=== PATIENT | male | born 1955 | race Caucasian/White ===

== ENCOUNTER 2018-09-05 08:11 | Outpatient (CLI) | payer BC | END 2018-09-05 20:58 | disposition home or self-care (01) | LOC: SUS 08:11 | PROVIDERS: ATTEND General Practice | DX: K76.0 Fatty (change of) liver, not elsewhere classified (principal) | CPT/HCPCS: 76700-TC ==

== ENCOUNTER 2018-12-03 10:57 | Outpatient (CLI) | payer BC | END 2018-12-04 21:22 | disposition home or self-care (01) | LOC: SRD 10:57 | PROVIDERS: ATTEND General Practice | DX: M16.12 Unilateral primary osteoarthritis, left hip (principal) | CPT/HCPCS: 73502 ==

== ENCOUNTER 2018-12-17 10:50 | Outpatient (CLI) | payer BC | END 2018-12-17 20:24 | disposition home or self-care (01) | LOC: SRD 10:50 | PROVIDERS: ATTEND General Practice | DX: K63.89 Other specified diseases of intestine (principal); M13.852 Other specified arthritis, left hip; M13.851 Other specified arthritis, right hip; N28.1 Cyst of kidney, acquired | CPT/HCPCS: 74018 ==